=== PATIENT | female | born 1960 | race Hispanic/Latino ===

== ENCOUNTER 2018-02-02 12:29 | Outpatient (CLI) | payer OTHER | END 2018-02-02 12:30 | disposition home or self-care (01) | LOC: BICMAMMO 12:29 | PROVIDERS: ATTEND Internal Medicine | DX: Z12.31 Encounter for screening mammogram for malignant neoplasm of breast (principal); R74.0 Nonspecific elevation of levels of transaminase and lactic acid dehydrogenase [LDH]; Z90.49 Acquired absence of other specified parts of digestive tract | CPT/HCPCS: 76705; 77063; 77067 ==

== ENCOUNTER 2019-06-15 20:56 | Inpatient (IN) | payer OTHER ==
[2019-06-15] MEDS ORDERED: traMADol HCl 50 MG TAB ONE (21:10)
[2019-06-15] MEDS ORDERED: Ibuprofen 800 MG TAB ONE (21:10)
--- NOTE | 2019-06-15 21:38 | RAD ---
XR Ankle Lt 3 View STANDARD INDICATION: Left ankle injury COMPARISON: None. FINDINGS: Bones: There is a trimalleolar fracture subluxation of the left ankle. The talar dome is subluxed lat erally. Ankle mortise: As above Talar Dome: Intact. Subtalar joint: Normal. Visualized hindfoot: Normal. Periarticular soft tissues: Prominent soft tissue swelling. IMPRESSION: 1. Trimalleolar fracture subluxation of the left ankle.
[2019-06-15] MEDS ORDERED: Morphine 4 MG/ML VIAL ONE ×2 (22:04→22:16)
[2019-06-15] MEDS ORDERED: Ondansetron PF 4 MG/2 ML Vial ONE (22:05)
[2019-06-15 22:18] LABS: #Eosinphils 0.3 thou/uL (0.0-0.7); #Lymphocytes 2.2 thou/uL (1.20-3.40); #Monocytes 0.5 thou/uL (0.11-0.59); #Neutrophils 6.3 thou/uL (1.40-6.50); %Basophils 0.5 % (0.0-1.0); %Eosinophils 2.8 % (0.0-10.0); %Lymphocytes 23.6 % (21.0-51.0); %Monocytes 4.9 % (0.0-10.0); %Neutrophils 68.2 % (42.0-75.0); Hemoglobin 14.7 g/dL (12.0-16.0); Mean Corpuscular Hemoglobin 28.1 pg (27.0-31.0); Mean Corpuscular Volume 87.8 fL (78.0-98.0); Mean Platelet Volume 7.5 fL (7.4-10.4); Platelet Count 312 thou/uL (130-400); RBC Distribution Width 12.2 % (11.5-14.5); Red Blood Cell (RBC) Count 5.23 mill/uL (4.20-5.40); White Blood Cell (WBC) Count 9.2 thou/uL (4.8-10.8)
[2019-06-15] MEDS ORDERED: Morphine 4 MG/ML VIAL SLOW IVP PRN (22:26)
[2019-06-15] MEDS ORDERED: Dextrose 5% in Water 1,000 ML IV PRN (22:26)
[2019-06-15] MEDS ORDERED: hydrALAZINE 20 MG/ML VIAL SLOW IVP PRN (22:26)
[2019-06-15] MEDS ORDERED: Dextrose 50% Abboject 50 ML SYRINGE SLOW IVP PRN (22:26)
[2019-06-15] MEDS ORDERED: Ondansetron ODT 4 MG TAB PO PRN (22:26)
[2019-06-15] MEDS ORDERED: Ondansetron PF 4 MG/2 ML Vial IVP PRN (22:26)
[2019-06-15 22:27] LABS: Prothrombin Time 13.5 SEC (12.0-14.7)
[2019-06-15] MEDS ORDERED: traMADol HCl 50 MG TAB PO PRN ×2 (22:30)
[2019-06-15] MEDS ORDERED: Cyclobenzaprine 10 MG TAB PO PRN (22:30)
[2019-06-15 22:39] LABS: ALT (SGPT) 24 U/L (8-55); AST (SGOT) 21 U/L (5-34); Albumin 4.5 g/dL (3.4-4.8); Alkaline Phosphatase 81 U/L (40-110); Anion Gap 16 mmol/L (10-20); BUN (Urea Nitrogen) 10 mg/dL (9.8-20.1); Bilirubin, Total 0.3 mg/dL (0.2-1.2); Calc. Creatinine Clearance 0 mL/min (70-130); Calcium 9.2 mg/dL (7.8-10.44); Carbon Dioxide 22 mmol/L (23-31); Chloride 105 mmol/L (98-107); Estimated GFR-MDRD 69; Globulin 3.7 g/dL (2.4-3.5); Glucose 111 mg/dL (80-115); Potassium 3.4 mmol/L (3.5-5.1); Protein, Total 8.2 g/dL (6.0-8.3); Sodium 140 mmol/L (136-145)
--- NOTE | 2019-06-15 23:06 | RAD ---
Chest AP view INDICATION: Preop evaluation COMPARISON: None FINDINGS: Lungs:The lungs are clear Cardiac silhouette:The cardiomediastinal silhouette appears within normal limits. Pulmonary vasculature:Normal Pleural spaces:No pleural effusion or pneumothorax is demonstrated. Upper abdomen:Cholecystectomy clips. Osseous structures: No acute osseous abnormality. Additional findings:None. IMPRESSION: No acute cardiopulmonary abnormality.
--- NOTE | 2019-06-15 23:07 | RAD ---
EXAM: XR Ankle Lt 3 View STANDARD DATE: 06/15/2019 10:29 PM INDICATION: Post reduction of left ankle fracture COMPARISON: Prior performed at 9:14 PM on June 15, 2019. FINDING: There is been interval placement of an overlying fiberglass splint. Fracture alignment is n ot appreciably changed. IMPRESSION:Interval splinting of the left trimalleolar ankle fracture
[2019-06-15 23:14] LABS: Bilirubin Negative (Negative); Blood, Urine Negative (Negative); Clarity Clear (Clear); Glucose, Urine (Dipstick) Normal (Negative); Leukocyte Negative Leu/uL (Negative); Nitrite Negative (Negative); Protein, Urine (Dipstick) Negative (Neg-Trace); Urobilinogen Normal mg/dL (Less than 2)
[2019-06-16] MEDS: Acetaminophen 500 MG TAB PO SCH ×5 (00:01→23:33)
[2019-06-16] MEDS: Sodium Chloride 0.9% 1,000 ML IV SCH ×2 (00:02→07:48)
[2019-06-16 00:12] LABS: Magnesium 2.1 mg/dL (1.6-2.6); Phosphorus 3.3 mg/dL (2.3-4.7)
[2019-06-16] MEDS ORDERED: Potassium Phosphate 15 MMOL in Sodium Chloride 0.9% 250 ML 250 ML IVPB SCH (01:00)
[2019-06-16 01:29] VITALS: BMI 27.3
--- NOTE | 2019-06-16 07:02 | HP ---
TRAUMA SURGEON: Brayan Rene MD. CONSULTING PHYSICIAN: Dr. Cabrera. HISTORY OF PRESENT ILLNESS: The patient is a 59-year-old female, who presented to the emergency department via POV after a mechanical fall, where the patient stepped into a hole, rolled her ankle and fell. She reported no loss of consciousness and only complained of pain over her right ankle. She did report that she was drinking earlier that evening. She does not drink on a daily basis. She denied numbness or tingling in the lower extremity. Denied loss of consciousness and anticoagulation use. REVIEW OF SYSTEMS: All additional 10-point review of systems negative except as indicated above. PAST MEDICAL HISTORY: Hypertension. PAST SURGICAL HISTORY: Cholecystectomy and tubal ligation. 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 She reports drinking Tequila this evening. She drinks about once a week. She denies tobacco and alcohol use. MEDICATIONS: Norvasc and metoprolol. ALLERGIES: CODEINE. PHYSICAL EXAMINATION: VITAL SIGNS: The patient is afebrile, hemodynamically stable, saturating greater than 92% on room air. PRIMARY SURVEY: Airway intact. Adequate breath sounds bilaterally. 2+ pulses in the bilateral radials, femorals, and DPs. GCS 15. Gross motor and sensation intact. Left lower extremity with swelling and some mild deformity. No bruising noted. No lacerations. SECONDARY SURVEY: HEAD: Normocephalic and atraumatic. No gross palpable skull deformities or tenderness. EYES: Pupils 3 to 2, equal, round, reactive bilaterally. ENT: No hemotympanum. No epistaxis. No septal hematoma. Midface stable to manipulation. No blood in the oropharynx. Dentition is intact. No anterior neck injury/crepitus/tenderness. C-SPINE: No step-offs or deformities, nontender. C-collar not in place. CHEST: Nontender. No crepitus. No abrasions or ecchymosis. Equal chest movement. ABDOMEN: Soft, nontender, nondistended. PELVIS: Stable to palpation. Nontender. No abrasions or ecchymosis. RECTAL: Deferred. GENITOURINARY: Deferred. EXTREMITIES: Left ankle with some slight deformity and swelling. No abrasions or ecchymosis noted. 2+ pulses in the bilateral radials, femorals, and DPs. BACK/SPINE: No step-offs, deformities, or tenderness to palpation of the thoracic or lumbar spine. No abrasions or ecchymosis noted. 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 Gross normal sensation x4 extremities. LABORATORY FINDINGS: White count 9.7, hemoglobin 14.7, hematocrit 46.0, platelets 312. INR 1.0. Sodium 140, potassium 3.4, chloride 105, bicarb 22, BUN 10, creatinine 0.84, glucose 111, phosphorus 3.3, magnesium 2.1. UA is negative. Plasma alcohol is 193. DIAGNOSTIC FINDINGS: X-ray of the left ankle demonstrates trimalleolar fracture subluxation of the left ankle. Chest x-ray demonstrates no acute cardiopulmonary abnormalities. ASSESSMENT: 1. Status post mechanical fall from standing. 2. Left trimalleolar fracture. 3. Acute hypokalemia. 4. History of hypertension. PLAN: The patient will be admitted to the surgical floor under the trauma team. She will be n.p.o. after midnight and will plan to go to the OR tomorrow with Dr. Cabrera. She will receive normal saline at 100 an hour. She will receive p.o. and IV pain medications both scheduled and as needed. We will restart her home medications as clinically indicated. The patient will work with Physical and Occupational therapy and likely be able to be discharged home if she can get around safely. We will replace potassium this evening as well. This patient was discussed with Dr. Rene before this dictation. Job ID: [id number]
[2019-06-16] MEDS ORDERED: CEFAZOLIN 2 GM in Premix Bag 1 BAG IVPB SCH (07:15)
--- NOTE | 2019-06-16 07:27 | CON ---
DATE OF CONSULTATION: 06/16/2019 REQUESTING PHYSICIAN: Brayan Rene MD PRINCIPAL DIAGNOSIS: Left trimalleolar ankle fracture. BRIEF HISTORY OF PRESENT ILLNESS: The patient is a pleasant 59-year-old female, who presented to the emergency department late last night after she accidentally stepped in a hole, sustaining a twisting injury to the left ankle. Upon evaluation at [facility], x-rays demonstrated a trimalleolar ankle fracture with slight lateral displacement of the talus within the mortise. The patient was placed in a well-padded short-leg splint and admitted to the Trauma Service and Orthopedic consultation requested. PAST MEDICAL HISTORY: Remarkable for hypertension. PAST SURGICAL HISTORY: Cholecystectomy and tubal ligation. MEDICATIONS: Norvasc and metoprolol. ALLERGIES: NONE KNOWN. SOCIAL HISTORY: She drinks alcohol socially. Denies tobacco or drug use. FAMILY HISTORY: Noncontributory for this fracture. REVIEW OF SYSTEMS: No recent fevers, chills, or sweats. No chest pain or shortness of breath. No numbness or tingling in this left lower extremity. PHYSICAL EXAMINATION: VITAL SIGNS: The patient is examined in her hospital bed on the third floor of [facility]. She was found to have a temperature of 98.2, heart rate of 74, respiratory rate of 16, and blood pressure of 113/74. HEENT: Atraumatic and normocephalic. HEART: Shows a regular rate and rhythm without murmur. LUNGS: Clear to auscultation with good breath sounds. ABDOMEN: Soft with normal bowel sounds. PELVIS: Stable. EXTREMITIES: Remarkable for a left lower extremity that is in a short-leg splint. She is able to wiggle her toes with no significant increase in pain. There is no increased pain with passive stretch of the toes either. She has subjective intact sensation over the dorsal and plantar surface of her exposed toes. LABORATORY DATA: She was found to have a white count of 9.2, a hematocrit of 46.0, a platelet count of 312,000. Her INR is 1.0. X-RAY STUDIES: Pre and post-reduction x-rays of this left ankle were obtained in the emergency room. They are remarkable for a trimalleolar ankle fracture with slight lateral shift of the talus within the mortise with displacement of the lateral malleolus. The posterior malleolar segment is small and felt to be not even incorporating 10% of the total surface area of the distal tibia. ASSESSMENT: A 59-year-old lady status post twisting injury to left ankle under load sustaining left trimalleolar ankle fracture. PLAN: Today, I discussed with the patient risks and benefits of open reduction and internal fixation. I have discussed with her that given the lateral shift of the talus within the mortise and the displacement of the lateral malleolus, I would strongly recommend operative intervention. Today, we also discussed risks and benefits of surgery. Risks included, but are not limited to bleeding, infection, nerve injury, DVT, PE, ankle stiffness, loss of limb or life. The patient appears to understand and does wish to proceed. Informed consent will be obtained prior to surgery. Job ID: [id number]
[2019-06-16] MEDS: Polyethylene Glycol 3350 17 GM Packet PO SCH (08:33)
[2019-06-16] MEDS: Senokot S 8.6-50 MG TAB PO SCH ×2 (08:33→20:56)
[2019-06-16] MEDS ORDERED: Ampicillin 2 GM VIAL ONE (09:21)
[2019-06-16] MEDS ORDERED: Ketorolac Tromethamine 30 MG/ML VIAL ONE (10:27)
[2019-06-16] MEDS ORDERED: PROPOFOL 200 MG/20 ML VIAL ONE (10:27)
[2019-06-16] MEDS ORDERED: Ondansetron PF 4 MG/2 ML Vial ONE (10:27)
[2019-06-16] MEDS ORDERED: Rocuronium Bromide 10 MG/ML (10ML VIAL) ONE (10:27)
[2019-06-16] MEDS ORDERED: Lidocaine 1% PF 5 ML VIAL ONE (10:27)
[2019-06-16] MEDS ORDERED: Glycopyrrolate 0.2 MG/ML 5 ML SYRINGE ONE (10:27)
[2019-06-16] MEDS ORDERED: Fentanyl 100 MCG/2 ML VIAL ONE ×2 (13:22→14:00)
[2019-06-16] MEDS ORDERED: Promethazine HCl 25 MG/ML VIAL SLOW IVP PRN (13:33)
[2019-06-16] MEDS ORDERED: Promethazine HCl 25 MG/ML VIAL IM PRN ×2 (13:33→16:34)
[2019-06-16] MEDS ORDERED: Ondansetron HCl/PF 4 MG/2 ML Vial IVP PRN (13:33)
[2019-06-16] MEDS ORDERED: Promethazine HCl 25 MG/ML VIAL ONE (13:34)
--- NOTE | 2019-06-16 13:46 | RAD ---
Radiograph left ankle 2 views: DATE: 06/16/2019 HISTORY: 59-year-old female with left ankle fracture. COMPARISON: 06/15/2019 FINDINGS: A total of 3 small [id number] fluoroscopic spot images obtained with C-arm in the OR. The fracture s of the medial and lateral malleolus have been reduced. Interval screw fixation of medial malleolus fracture. Plate and screw fixation of lateral malleolus fracture. Nearly anatomical alignme nt. No interval change in position of posterior malleolus fracture. Ankle mortise is congruent. IMPRESSION: Status post open reduction internal fixation of lateral malleolus fracture, and screw fixation of med ial malleolus fracture.
--- NOTE | 2019-06-16 13:57 | PDOC.BPN ---
- Brief Progress Note I have discussed this patient with Danika Reeves and have reviewed the pertinent imaging and laboratory findings, and am in agreement with her findings and plan. Briefly, this is a 59F with a trimalleolar fracture after stepping in a hole while intoxicated. She has been evaluate by ORS and is planned for operative fixation later today.
--- NOTE | 2019-06-16 17:21 | PRG ---
DATE OF SERVICE: 06/16/2019 SUBJECTIVE: The patient is currently on the surgical floor. She is immediately postop from open reduction and internal fixation of a left trimalleolar fracture. She did well with the surgery. She currently states that her pain is controlled though she is having some nausea and request Phenergan as opposed to Zofran. OBJECTIVE: VITAL SIGNS: Temperature 98.2, heart rate 85, blood pressure 146/82, respirations 18, oxygen saturation is 96% on 2L via nasal cannula. GENERAL: The patient is resting comfortably in bed. She was asleep when I entered, but awakens to verbal stimuli. She appeared in no distress and she was appropriate. LUNGS: Clear to auscultation bilaterally. HEART: Regular rate and rhythm. ABDOMEN: Soft, flat, nontender with active bowel sounds. EXTREMITIES: Neurovascularly intact x4. Left lower extremity is immobilized in a clean, dry, and intact splint and dressing. LABORATORY DATA: There are no labs or radiographs to review this morning. ASSESSMENT AND PLAN: 1. Status post ground level fall. 2. Status post open reduction and internal fixation of left trimalleolar fracture. 3. History of hypertension. PLAN: Plan will be to continue supportive care. Physical and occupational therapy evaluation tomorrow and discus placement if needed at that time. Job ID: [id number]
[2019-06-16] MEDS: CEFAZOLIN 2 GM in Premix Bag 1 BAG IVPB SCH (17:40)
[2019-06-16] MEDS ORDERED: Ibuprofen 600 MG TAB PO SCH (18:00)
[2019-06-16] MEDS: Ibuprofen 600 MG TAB PO SCH (21:03)
--- NOTE | 2019-06-16 22:06 | OP ---
DATE OF PROCEDURE: 06/16/2019 PREOPERATIVE DIAGNOSIS: Left trimalleolar ankle fracture. POSTOPERATIVE DIAGNOSIS: Left trimalleolar ankle fracture. PROCEDURE PERFORMED: Open reduction and internal fixation of left medial and lateral malleoli. ANESTHESIA: General. LOCAL TELEPHONE OPERATOR: Saji Ricks PA-C. TOURNIQUET TIME: Approximately 50 minutes at 300 mmHg. IMPLANTS: Synthes 1/3 tubular 7-hole plate with combination of fully-threaded cancellous and cortical screws in addition to partially-threaded cancellous screws for the medial malleolus. COMPLICATIONS: None. DRAINS: None. SPECIMENS: None. OUTCOME: Near-anatomic alignment. INDICATIONS FOR PROCEDURE: Ms. Xavier is a pleasant 59-year-old lady, who sustained a twisting injury to her left ankle when she stepped into a hole. She is found to have a trimalleolar ankle fracture with some mild widening of the mortise secondary to displacement in the lateral malleolus. After discussion with the patient including risks and benefits, we decided to proceed with open reduction and internal fixation. Informed consent has been obtained. I believe all questions have been answered. Risks and benefits have been discussed. Risks include, but are not limited to bleeding, infection, nerve injury, DVT, PE, malunion, nonunion, arthritis, stiffness, loss of limb or life. The patient appears to understand and does wish to proceed. DESCRIPTION OF PROCEDURE: The patient was brought to the operating room. Time-out performed followed by induction of general anesthesia. Next, she was positioned supine on the regular OR table and then, a sterile prep and drape was performed in the left lower extremity. Next, the limb was exsanguinated with Esmarch bandage, tourniquet inflated to 300 mmHg. A vertical incision was made over the lateral malleolus. After skin was sharply incised, dissection was carried down bluntly to the underlying fracture. Using minimal subperiosteal dissection, the fracture edges were fully freed of soft tissue and then the fracture reduced and held in place with a bone tenaculum. Next, an [id number] interfragmentary compression screw was applied. This was then followed by application of a 7-hole neutralization plate laterally, held in place with a fully-threaded cancellous screws distally and cortical screws proximally. At the completion of this AP, mortise and lateral images were obtained that showed near-anatomic alignment of the lateral malleolus, reduction of the ankle mortise, and reduction of the posterior malleolar fragment. Next, attention was placed medially. Again, a vertical incision was made centered over the medial malleolus. After skin was sharply incised, dissection was carried down bluntly taking care to protect the vein. The periosteum was removed from the fracture gap and then the fracture was reduced and held in place with a bone tenaculum. Next, two 4.0 mm partially-threaded cancellous screws were passed from the tip of the medial malleolus obliquely across the fracture of the distal tibial metaphysis, getting excellent compression across this fracture. Final AP, mortise, and lateral x-rays were obtained that showed anatomic alignment of the fractures. The 2 wounds were then irrigated with bulb syringe, then closed in layers with 0 Vicryl deep followed by 2-0 Vicryl and then alesha for the skin. Xeroform gauze, Webril, and fiberglass splint were applied to the ankle. Tourniquet was let down and then, the patient was transferred to recovery in stable condition. There were no complications. She tolerated the procedure well. Job ID: [id number]
[2019-06-17] MEDS: CEFAZOLIN 2 GM in Premix Bag 1 BAG IVPB SCH (00:51)
[2019-06-17] MEDS: Acetaminophen 500 MG TAB PO SCH ×2 (05:45→13:00)
[2019-06-17] MEDS: Ibuprofen 600 MG TAB PO SCH (05:45)
[2019-06-17] MEDS: Polyethylene Glycol 3350 17 GM Packet PO SCH (08:45)
[2019-06-17] MEDS: Senokot S 8.6-50 MG TAB PO SCH (08:45)
[2019-06-17] MEDS ORDERED: Amlodipine 5 MG TAB PO SCH (09:00)
[2019-06-17 09:18] LABS: Anion Gap 8 mmol/L (10-20); BUN (Urea Nitrogen) 8 mg/dL (9.8-20.1); Calc. Creatinine Clearance 73 mL/min (70-130); Calcium 8.6 mg/dL (7.8-10.44); Carbon Dioxide 33 mmol/L (23-31); Chloride 100 mmol/L (98-107); Estimated GFR-MDRD 66; Glucose 105 mg/dL (80-115); Sodium 137 mmol/L (136-145)
[2019-06-17] MEDS ORDERED: Ibuprofen 600 MG TAB PO PRN (12:21)
[2019-06-17 15:34] VITALS: BP 105/69; TEMP 97.4
[2019-06-17] MEDS ORDERED: Enoxaparin Sodium 40 MG/0.4 ML SYRINGE SC SCH (21:00)
--- NOTE | 2019-06-18 02:00 | DIS ---
DATE OF ADMISSION: 06/15/2019 DATE OF DISCHARGE: 06/17/2019 This is Kadi Aburto NP dictating a report for Brayan Rene MD. CONSULTS: Orthopedic Surgery, Dr. Cabrera. PROCEDURES PERFORMED: On 06/16/2019, open reduction and internal fixation of left medial and lateral malleolar fracture. PRIMARY DIAGNOSES: Status post mechanical fall from standing, left trimalleolar fracture, hypokalemia. SECONDARY DIAGNOSIS: Hypertension. DISCHARGE MEDICATIONS: 1. Lovenox 40 mg subcu daily for 14 days for VTE prophylaxis. 2. Zofran ODT 4 mg p.o. q.6 hours p.r.n. for nausea. 3. Tylenol 1 g p.o. q.6 hours. 4. Norvasc 5 mg p.o. daily. 5. Ibuprofen 600 mg p.o. q.8 hours p.r.n. 6. Metoprolol 50 mg p.o. daily. HISTORY OF PRESENT ILLNESS/HOSPITAL COURSE: This is a 59-year-old female, who presented to the emergency room via POV after a mechanical fall, where the patient stepped into a hole, rolled her ankle and fell. There was no loss of consciousness and she only complained of right ankle pain. The patient reports that she had been drinking earlier that evening. Trauma Service was asked to admit the patient. The patient's pain was well controlled pre and postop. She did not want anything stronger than Tylenol for pain, as the Tramadol made her nauseated. On the day of discharge, the patient was evaluated by Dr. Blackburn. The patient had no complaints or concerns. The patient's vital signs were stable. Her exam was unremarkable including cardiopulmonary and GI exam. The patient was deemed stable for discharge home. The patient is at high risk for VTE based on her Caprini VTE Score. She will be on Lovenox for 2 weeks. 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 DISPOSITION: Stable. DISCHARGE INSTRUCTIONS: 1. Location: Home. 2. Diet: Regular diet. 3. Activity: Nonweightbearing in the left lower extremity. Ambulate frequently to prevent blood clots in legs. 4. Followup: Follow up with Dr. Cabrera in 2 weeks. Follow up with your primary care physician as needed. Job ID: [id number] [facility]
== END 2019-06-17 17:52 | disposition home or self-care (01) | DRG 494 ==
LOC: ERS 20:56 → SURG B 22:12
PROVIDERS: ADMIT Surgery; ATTEND Surgery
PROC: 0QSK04Z Reposition Left Fibula with Internal Fixation Device, Open Approach (ICD-10-PCS; principal; 2019-06-16)
PROC: 0QSH04Z Reposition Left Tibia with Internal Fixation Device, Open Approach (ICD-10-PCS; 2019-06-16)
DX: S82.852A Displaced trimalleolar fracture of left lower leg, initial encounter for closed fracture (principal); E87.6 Hypokalemia; W01.0XXA Fall on same level from slipping, tripping and stumbling without subsequent striking against object, initial encounter; I10 Essential (primary) hypertension; Z98.51 Tubal ligation status; Z90.49 Acquired absence of other specified parts of digestive tract
CPT/HCPCS: 36415; 71045; 76000; 80048; 80053; 80307; 81003; 83735; 84100; 85025; 85610; 85730; 93005; 96374; 96375; C1713; J0290; J0690; J1885; J2001; J2270; J2405; J2550; J2704; J3010; J7050